=== PATIENT | male | born 1950 | race Caucasian/White ===

== ENCOUNTER 2016-08-30 17:35 | Emergency (ER) | payer MEDICARE ==
--- NOTE | ~2016-08-30 | CT4 ---
[facility] A Service of [facility] RADIOLOGY TEXT RESULTS PATIENT: CAL PRESTON V LOCATION: [facility] : 48 UNIT #: [id number] AGE: [address]: Lyndon Alan MD SEX: M ORDER DR: [id number] [facility] [address] [place], [place] [address] [id number] MR#: [id number] Acc #: [id number] NAME: CAL PRESTON V. : 1950 SEX: M STUDY DATE/TIME: 08/30/2016 16:48 UNIT: [facility] ROOM: STUDY DESCRIPTION: CT Abd and Pelv Wo Cont Attending Physician: Ángel Alan M.D. Ordering Physician: Parag Maloney M.D. MEDICAL IMAGING REPORT This report is preliminary unless electronic signature is present EXAM CT abdomen and pelvis without contrast. HISTORY Flank pain starting this morning. History of kidney stones. TECHNIQUE Axial images performed the through the abdomen and pelvis without contrast. Multiplanar reconstructed images reviewed at a workstation. This CT exam was performed with one or more of the following radiation dose reduction techniques: automatic exposure control, adjustment of mA and/or kV according to patient size, and iterative reconstruction. FINDINGS Lung bases unremarkable. Liver, spleen, gallbladder, pancreas, and adrenal glands unremarkable. There is extensive bilateral nephrolithiasis with too numerous to count renal stones and calcifications. There is right-sided hydronephrosis and perinephric edema compatible with acute obstruction. There are multiple stones or a collection of stones within the proximal right ureter measuring up to 2.7 cm in length. Extensive perinephric edema could at least partially represent urinary extravasation. There is gas within the perinephric soft tissues, particularly in the right subdiaphragmatic region. There is also left retroperitoneal gas and extraluminal gas along the distal esophagus and lower middle mediastinum. Gas also extends into the patient's right inguinal hernia which contains only omental fat. The large amount of predominantly retroperitoneal gas is somewhat atypical. No definite hollow viscus perforation is identified and no definite intraperitoneal gas is identified. Stomach, small bowel, colon unremarkable. The appendix normal but is retrocecal. Aorta and IVC unremarkable. [facility]. [facility] A Service of [facility] RADIOLOGY TEXT RESULTS PATIENT: CAL PRESTON V LOCATION: [facility] : 48 UNIT #: [id number] AGE: [address]: Lyndon Alan MD SEX: M ORDER DR: PELVIS: Bladder and prostate appear normal. Osseous structures show moderately advanced multilevel degenerative disc disease of the lumbar spine. There is multilevel spinal stenosis, most pronounced L4-5. IMPRESSION 1. Extensive nephrolithiasis with extensive stone burden within both kidneys. 2. Extensive stones within the proximal right ureter measuring over 2.7 cm in length. This contributes to moderate hydronephrosis with perinephric edema and perinephric stranding on the right. 3. Middle mediastinal gas as well as gas within the retroperitoneum, particularly on the right, but also on the left, as well as gas noted within the patient's right inguinal hernia sac. The exact etiology for this is unclear. After discussing with Dr. lAan, a discrete abnormality or etiology could not be determined. Consideration was made for possible esophageal tear or perforation, possibly related to NSAID therapy or retching, though by report the patient has been relatively comfortable and in little distress. 4. Moderately advanced multilevel degenerative disc disease with multilevel spinal stenosis. Dictated by... Woody Lao M.D. THIS IS AN ELECTRONICALLY VERIFIED REPORT Woody Lao M.D. at 08/31/2016 10:52 PM CASSI/tamiko TD: 08/31/2016 08:06 JOB #: [id number] MEDICAL IMAGING REPORT Page 1 of 1 COPY
[2016-08-30 14:29] LABS: URINE SOURCE CLEAN CATCH
[2016-08-30 14:36] LABS: URINE APPEARANCE CLEAR; URINE BILIRUBIN NEG (NEG); URINE BLOOD NEG (NEG); URINE COLOR YELLOW; URINE GLUCOSE NEG (NEG); URINE KETONE TRACE (NEG); URINE LEUKOCYTE ESTERASE NEG (NEG); URINE NITRATE NEG (NEG); URINE PH 7.5 (5-8); URINE PROTEIN NEG (NEG); URINE SPECIFIC GRAVITY 1.013 (1.003-1.035); URINE UROBILINOGEN 0.2 MG/DL (NEG)
[2016-08-30 14:48] LABS: CULTURE INDICATED? NO
[2016-08-30 16:54] LABS: BASOPHIL# 0.1 X10e3 (0-0.3); BASOPHIL% 0.5 % (0-2.5); EOSINOPHIL% 0.3 % (0.0-7.0); HEMATOCRIT 31.2 % (38.0-50.0); HEMOGLOBIN 10.1 gm/dL (13.0-16.0); LYMPHOCYTE# 0.6 X10e3 (1.0-3.5); LYMPHOCYTE% 4.5 % (17.0-45.0); MEAN CELL VOLUME 101.3 FL (83-96); MEAN CORPUSCULAR HGB CONC 32.5 g/dL (30-36); MEAN PLATELET VOLUME 7.9 FL (6.5-11.5); MONOCYTE# 0.9 X10e3 (0-1.0); MONOCYTE% 6.1 % (3.0-12.0); NEUTROPHIL# 12.4 X10e3 (1.5-7.1); NEUTROPHIL% 88.6 % (40-75); PLATELET COUNT 322 X10e3 (140-420); RED BLOOD COUNT 3.08 X10e (3.90-5.60); RED CELL DISTRIBUTION WIDTH 14.1 % (11.0-15.5)
[2016-08-30 16:55] LABS: DIFF IND NO
[2016-08-30 17:17] LABS: BILIRUBIN, DIRECT 0.1 mg/dL (0.0-0.2); BILIRUBIN,INDIRECT 0.8 mg/dL (0.0-0.9); BILIRUBIN,TOTAL 0.9 mg/dL (0.2-2.0); BUN/CREATININE RATIO 15.71; CALCIUM SERUM 8.7 mg/dL (8.4-10.2); CREATININE SERUM 0.7 mg/dL (0.6-1.4); GLOM FILT RATE Estimated 98.4 mL/min (>60); PROTEIN TOTAL SERUM 6.8 g/dL (6.0-8.3)
== END 2016-08-30 19:35 | disposition home or self-care (01) ==
LOC: CED 17:35
PROVIDERS: Emergency Medicine
DX: K66.8 Other specified disorders of peritoneum (principal); E78.5 Hyperlipidemia, unspecified; I10 Essential (primary) hypertension; F17.210 Nicotine dependence, cigarettes, uncomplicated; Z87.442 Personal history of urinary calculi
CPT/HCPCS: 36415; 74176; 80048; 80076; 81003; 83690; 85025; 96361; 96374; 99284; J2405